=== PATIENT | female | born 1960 | race Caucasian/White ===

== ENCOUNTER 2019-05-12 06:56 | Emergency (ER) | payer OTHER ==
[~2019-05-12] VITALS: Ht 160 cm; Wt 56.7 kg
[2019-05-12 07:00] VITALS: BP_SYST 126
== END 2019-05-12 07:57 | disposition home or self-care (01) ==
LOC: SED 06:56
DX: J30.9 Allergic rhinitis, unspecified (principal)
CPT/HCPCS: 99282

== ENCOUNTER 2020-05-17 14:57 | Emergency (ER) | payer OTHER ==
[~2020-05-17] VITALS: Ht 160 cm; Wt 59.0 kg
--- NOTE | 2020-05-17 15:00 | NUR ---
PATIENT TO ER #[facility] 1
[2020-05-17 15:03] VITALS: BP_SYST 129
--- NOTE | 2020-05-17 15:03 | NUR ---
Pt came to ER for L leg sciatic pain pt states pain 9/10 in hip radiating down leg. Pt resting in gurney at this time VSS no distress noted.
--- NOTE | 2020-05-17 15:10 | NUR ---
ER at bedside examining patient.
[2020-05-17] MEDS ORDERED: KETOROLAC TROMETHAMINE 60 MG/2 ML VIAL IM ONE (15:15)
--- NOTE | 2020-05-17 15:30 | NUR ---
Pt tolerated medication, will continue to monitor
[2020-05-17] MEDS ORDERED: MORPHINE 4 MG/ML INJ. SYRINGE IM ONE (16:00)
--- NOTE | 2020-05-17 16:23 | NUR ---
Pt tolerated meds. Resting in [facility] at this time.
[2020-05-17 16:55] VITALS: BP_SYST 129
--- NOTE | 2020-05-17 16:56 | NUR ---
Patient given written and verbal discharge instructions and verbalizes understanding. ER MD discussed with patient the results and treatment provided. Patient in stable condition. ID arm band removed. Rx of Naprosyn given. Patient educated on pain management and to follow up with PMD. Pain Scale 3/10. Opportunity for questions provided and answered. Medication side effect fact sheet provided.
== END 2020-05-17 16:56 | disposition home or self-care (01) ==
LOC: SED 14:57
DX: M54.42 Lumbago with sciatica, left side (principal)
CPT/HCPCS: 96372; 99284; J1885; J2270

== ENCOUNTER 2020-08-18 13:57 | Outpatient (CLI) | payer OTHER | END 2020-08-18 20:05 | disposition home or self-care (01) | LOC: SMA 13:57 | DX: Z12.31 Encounter for screening mammogram for malignant neoplasm of breast (principal) | CPT/HCPCS: 77067 ==

== ENCOUNTER 2021-02-21 09:25 | Outpatient (CLI) | payer OTHER | END 2021-02-21 19:58 | disposition home or self-care (01) | LOC: SUS 09:25 | DX: N28.1 Cyst of kidney, acquired (principal); R93.89 Abnormal findings on diagnostic imaging of other specified body structures | CPT/HCPCS: 76700-TC; 76830-TC; 76857 ==

== ENCOUNTER 2021-03-15 14:59 | Emergency (ER) | payer OTHER ==
[~2021-03-15] VITALS: Ht 162.6 cm; Wt 59.0 kg
[2021-03-15 15:00] VITALS: BP_SYST 104
[2021-03-15] MEDS ORDERED: KETOROLAC TROMETHAMINE 60 MG/2 ML VIAL IM ONE (17:30)
[2021-03-15] MEDS ORDERED: IBUP-1969 PO (17:33)
[2021-03-15 17:47] VITALS: BP_SYST 112
== END 2021-03-15 17:47 | disposition home or self-care (01) ==
LOC: SED 14:59
DX: R07.89 Other chest pain (principal); W18.39XA Other fall on same level, initial encounter; Y93.89 Activity, other specified; Y92.098 Other place in other non-institutional residence as the place of occurrence of the external cause; Y99.8 Other external cause status
CPT/HCPCS: 71045; 71100; 93005; 96372; 99284; J1885

== ENCOUNTER 2021-07-04 08:28 | Emergency (ER) | payer OTHER ==
[~2021-07-04] VITALS: Ht 162.6 cm; Wt 57.2 kg
[~2021-07-04 08:28] MED LIST: IBUP-1969 PO
[2021-07-04 08:30] VITALS: BP_SYST 108
[2021-07-04] MEDS ORDERED: ONDANSETRON 4 MG ODT TAB PO ONE (08:45)
[2021-07-04 08:58] LABS: BASOPHILS % (AUTO) 0.6 % (0.0-2.0); EOSINOPHILS % (AUTO) 0.2 % (0.0-4.0); HEMATOCRIT 37.6 % (36-48); HEMOGLOBIN 12.7 g/dL (12.0-16.0); LYMPHOCYTES # (AUTO) 0.7 K/uL (1.0-5.5); LYMPHOCYTES % (AUTO) 8.8 % (20.5-51.5); MEAN CORPUSCULAR HEMOGLOBIN 32 pg (27-31); MEAN CORPUSCULAR HGB CONC 34 % (32-36); MEAN CORPUSCULAR VOLUME 95 fL (79.0-98.0); MONOCYTES # (AUTO) 0.3 K/uL (0.0-1.0); MONOCYTES % (AUTO) 3.5 % (1.7-9.3); NEUTROPHILS # (AUTO) 6.6 K/uL (1.8-7.7); NEUTROPHILS % (AUTO) 86.9 % (40.0-70.0); PLATELET COUNT (AUTO) 134 K/uL (130-430); RED BLOOD CELL COUNT(AUTO) 3.94 MIL/uL (4.2-6.2); RED CELL DISTRIBUTION WIDTH 14.8 % (9.0-15.0); WHITE BLOOD COUNT (AUTO) 7.6 K/uL (4.8-10.8)
[2021-07-04 09:12] LABS: CALCIUM 8.9 mg/dL (8.4-11.0); CHLORIDE 103 mmol/L (98-107); CREATININE 0.86 mg/dL (0.55-1.30); GLUCOSE 209 mg/dL (70-99); POTASSIUM 3.8 mmol/L (3.5-5.1); SODIUM SERUM 136 mmol/L (136-145); UREA NITROGEN, BLOOD 20 mg/dL (8-21)
[2021-07-04 09:16] LABS: PROTHROMBIN TIME 10.4 SECS (9.5-12.5)
[2021-07-04 09:18] LABS: ALANINE AMINOTRANSFERASE 35 U/L (12-78); ALBUMIN 3.4 g/dL (3.4-4.8); ASPARTATE AMINOTRANSFERASE 39 U/L (10-37); TOTAL BILIRUBIN 0.4 mg/dL (0.0-1.0)
[2021-07-04 09:23] LABS: ANION GAP < 3 (5-15); GFR AFRICAN AMERICAN 86 mL/min (>90)
[2021-07-04 10:18] VITALS: BP_SYST 108
== END 2021-07-04 10:20 | disposition home or self-care (01) ==
LOC: SED 08:28
DX: R42 Dizziness and giddiness (principal); R51.9 Headache, unspecified; Z79.899 Other long term (current) drug therapy
CPT/HCPCS: 36415; 70450; 71045; 76376; 80053; 84484; 85025; 85610; 85730; 93005; 99285; Q0162

== ENCOUNTER 2021-07-13 13:16 | Emergency (ER) | payer OTHER ==
[~2021-07-13] VITALS: Ht 160 cm; Wt 54.4 kg
[2021-07-13 13:29] VITALS: BP_SYST 118
[2021-07-13 14:47] VITALS: BP_SYST 118
[2021-07-14 11:06] LABS: HEPATITIS B CORE AB, TOTAL Negative (Negative); HEPATITIS B SURFACE AG Negative (Negative); HEPATITIS C VIRUS AB <0.1 s/co ratio (0.0-0.9)
== END 2021-07-13 14:49 | disposition home or self-care (01) ==
LOC: SED 13:16
DX: S61.432A Puncture wound without foreign body of left hand, initial encounter (principal); Z77.21 Contact with and (suspected) exposure to potentially hazardous body fluids; Z79.899 Other long term (current) drug therapy; W46.0XXA Contact with hypodermic needle, initial encounter; Y93.89 Activity, other specified; Y92.89 Other specified places as the place of occurrence of the external cause; Y99.8 Other external cause status
CPT/HCPCS: 36415; 86704; 86706; 86803; 87340; 99283

== ENCOUNTER 2021-08-15 13:14 | Outpatient (CLI) | payer OTHER ==
[2021-08-16 05:08] LABS: HEPATITIS B CORE AB, TOTAL Negative (Negative); HEPATITIS B SURFACE AG Negative (Negative); HEPATITIS C VIRUS AB <0.1 s/co ratio (0.0-0.9)
== END 2021-08-15 20:13 | disposition home or self-care (01) ==
LOC: SLB 13:14
PROVIDERS: ATTEND Internal Medicine Hospice and Palliative Medicine
DX: T14.90XA Injury, unspecified, initial encounter (principal); W46.0XXA Contact with hypodermic needle, initial encounter; Y93.89 Activity, other specified; Y92.89 Other specified places as the place of occurrence of the external cause; Y99.8 Other external cause status
CPT/HCPCS: 36415; 86704; 86706; 86803; 87340

== ENCOUNTER 2022-02-07 09:33 | Outpatient (CLI) | payer OTHER | END 2022-02-07 14:00 | disposition home or self-care (01) | LOC: SUS 09:33 | PROVIDERS: ATTEND Family Medicine | DX: R10.9 Unspecified abdominal pain (principal) | CPT/HCPCS: 76700-TC ==

== ENCOUNTER 2022-03-06 06:33 | Outpatient (CLI) | payer OTHER ==
[2022-03-06 08:23] LABS: BASOPHILS % (AUTO) 0.8 % (0.0-2.0); EOSINOPHILS # (AUTO) 0.1 K/uL (0.0-0.4); EOSINOPHILS % (AUTO) 1.8 % (0.0-4.0); HEMATOCRIT 40.1 % (36-48); HEMOGLOBIN 13.3 g/dL (12.0-16.0); LYMPHOCYTES # (AUTO) 1.2 K/uL (1.0-5.5); LYMPHOCYTES % (AUTO) 26.9 % (20.5-51.5); MEAN CORPUSCULAR HEMOGLOBIN 31 pg (27-31); MEAN CORPUSCULAR HGB CONC 33 % (32-36); MEAN CORPUSCULAR VOLUME 93 fL (79.0-98.0); MONOCYTES # (AUTO) 0.3 K/uL (0.0-1.0); NEUTROPHILS # (AUTO) 2.8 K/uL (1.8-7.7); NEUTROPHILS % (AUTO) 63.5 % (40.0-70.0); PLATELET COUNT (AUTO) 144 K/uL (130-430); RED BLOOD CELL COUNT(AUTO) 4.31 MIL/uL (4.2-6.2); RED CELL DISTRIBUTION WIDTH 14.4 % (9.0-15.0); WHITE BLOOD COUNT (AUTO) 4.5 K/uL (4.8-10.8)
[2022-03-06 09:20] LABS: ALBUMIN 3.8 g/dL (3.4-4.8); CALCIUM 10.4 mg/dL (8.4-11.0); CREATININE 0.53 mg/dL (0.55-1.30); TOTAL BILIRUBIN 0.7 mg/dL (0.0-1.0)
[2022-03-06 09:24] LABS: BILIRUBIN,URINE NEGATIVE (NEGATIVE); BLOOD, URINE NEGATIVE (NEGATIVE); CLARITY/URINE CLEAR (CLEAR); COLOR,URINE YELLOW (YELLOW); GLUCOSE,URINE NEGATIVE (NEGATIVE); KETONES,URINE NEGATIVE (NEGATIVE); LEUKOCYTE ESTERASE ,URINE TRACE (NEGATIVE); NITRITE, URINE NEGATIVE (NEGATIVE); PROTEIN URINE NEGATIVE (NEGATIVE); UROBILINOGEN,URINE 0.2 (0.2-1.0)
[2022-03-06 09:34] LABS: BACTERIA,URINE FEW /HPF (None Seen); MUCUS,URINE 1+ /LPF (None Seen); RBC,URINE 0-3 /HPF (0-3)
[2022-03-06 12:15] LABS: THYROID STIMULATING HORMONE 2.12 uIu/mL (0.34-4.82)
== END 2022-03-06 18:41 | disposition home or self-care (01) ==
LOC: SLB 06:33
DX: Z00.00 Encounter for general adult medical examination without abnormal findings (principal); Z13.9 Encounter for screening, unspecified; Z13.1 Encounter for screening for diabetes mellitus; Z79.899 Other long term (current) drug therapy
CPT/HCPCS: 36415; 80053; 80061; 81000; 83036; 84443; 85025

== ENCOUNTER 2022-03-26 14:38 | Emergency (ER) | payer OTHER ==
[~2022-03-26] VITALS: Ht 160 cm; Wt 54.4 kg
[2022-03-26 15:41] VITALS: BP_SYST 112
[2022-03-26] MEDS ORDERED: MECLIZINE HCL 25 MG TABLET (ANITVERT) PO ONE (20:00)
[2022-03-26] MEDS ORDERED: NACL 0.9% 1,000 ML IV ONE (20:00)
[2022-03-26 20:24] LABS: BILIRUBIN,URINE NEGATIVE (NEGATIVE); CLARITY/URINE CLEAR (CLEAR); COLOR,URINE YELLOW (YELLOW); GLUCOSE,URINE NEGATIVE (NEGATIVE); KETONES,URINE NEGATIVE (NEGATIVE); LEUKOCYTE ESTERASE ,URINE 1+ (NEGATIVE); NITRITE, URINE NEGATIVE (NEGATIVE); PROTEIN URINE NEGATIVE (NEGATIVE); UROBILINOGEN,URINE 0.2 (0.2-1.0)
[2022-03-26 20:32] LABS: BLOOD, URINE TRACE (NEGATIVE)
[2022-03-26 20:34] LABS: BASOPHILS % (AUTO) 0.8 % (0.0-2.0); EOSINOPHILS # (AUTO) 0.1 K/uL (0.0-0.4); EOSINOPHILS % (AUTO) 2.6 % (0.0-4.0); HEMATOCRIT 35.3 % (36-48); HEMOGLOBIN 12.1 g/dL (12.0-16.0); LYMPHOCYTES # (AUTO) 1.8 K/uL (1.0-5.5); LYMPHOCYTES % (AUTO) 37.8 % (20.5-51.5); MEAN CORPUSCULAR HEMOGLOBIN 32 pg (27-31); MEAN CORPUSCULAR HGB CONC 34 % (32-36); MEAN CORPUSCULAR VOLUME 93 fL (79.0-98.0); MONOCYTES # (AUTO) 0.4 K/uL (0.0-1.0); MONOCYTES % (AUTO) 8.1 % (1.7-9.3); NEUTROPHILS # (AUTO) 2.4 K/uL (1.8-7.7); NEUTROPHILS % (AUTO) 50.7 % (40.0-70.0); PLATELET COUNT (AUTO) 134 K/uL (130-430); RED BLOOD CELL COUNT(AUTO) 3.81 MIL/uL (4.2-6.2); RED CELL DISTRIBUTION WIDTH 14.3 % (9.0-15.0); WHITE BLOOD COUNT (AUTO) 4.8 K/uL (4.8-10.8)
[2022-03-26 20:37] LABS: PROTHROMBIN TIME 10.5 SECS (9.5-12.5)
[2022-03-26 20:43] LABS: ANION GAP 4 (5-15); CALCIUM 10.4 mg/dL (8.4-11.0); CHLORIDE 108 mmol/L (98-107); CREATININE 0.66 mg/dL (0.55-1.30); GLUCOSE 91 mg/dL (70-99); SODIUM SERUM 139 mmol/L (136-145); UREA NITROGEN, BLOOD 27 mg/dL (8-21)
[2022-03-26 20:48] LABS: GFR AFRICAN AMERICAN 116 mL/min (>90)
[2022-03-26 20:52] LABS: ALANINE AMINOTRANSFERASE 30 U/L (12-78); ALBUMIN 3.5 g/dL (3.4-4.8); ASPARTATE AMINOTRANSFERASE 33 U/L (10-37); TOTAL BILIRUBIN 0.2 mg/dL (0.0-1.0)
[2022-03-26 21:01] LABS: BACTERIA,URINE FEW /HPF (None Seen); RBC,URINE 0-3 /HPF (0-3)
[2022-03-26] MEDS ORDERED: cefTRIAXone 1 GM IVPB PREMIX 50 ML IV ONE (21:45)
[2022-03-26] MEDS ORDERED: METOCLOPRAMIDE HCL 10 MG/2 ML VIAL IVP ONE (22:00)
[2022-03-26] MEDS ORDERED: DIPHENHYDRAMINE INJ 50 MG/ML VIAL IVP ONE (22:00)
[2022-03-26] MEDS ORDERED: KETOROLAC TROMETHAMINE 30 MG VIAL IVP ONE (22:30)
[2022-03-26] MEDS ORDERED: MECL-108 PO (23:14)
[2022-03-26] MEDS ORDERED: NAPR-690 PO (23:16)
[2022-03-26 23:33] VITALS: BP_SYST 116
== END 2022-03-26 23:33 | disposition home or self-care (01) ==
LOC: SED 14:38
DX: R42 Dizziness and giddiness (principal); R51.9 Headache, unspecified; N39.0 Urinary tract infection, site not specified; K21.9 Gastro-esophageal reflux disease without esophagitis
CPT/HCPCS: 36415; 71045; 80053; 81000; 84484; 85025; 85610; 85730; 87086; 93005; 96365; 96366; 96375; 99285; J0696; J1200; J1885; J2765; J8597

== ENCOUNTER 2022-07-01 06:44 | Outpatient (CLI) | payer OTHER ==
[~2022-07-01 06:44] MED LIST changes: +MECL-108 PO; +NAPR-690 PO
[2022-07-02] MEDS ORDERED: TRAM50TA PO (12:53)
== END 2022-07-01 20:42 | disposition home or self-care (01) ==
LOC: SLB 06:44
DX: G44.52 New daily persistent headache (NDPH) (principal)
CPT/HCPCS: 70450-TC; 76376

== ENCOUNTER 2022-07-02 11:57 | Emergency (ER) | payer OTHER ==
[~2022-07-02] VITALS: Ht 160 cm; Wt 53.5 kg
[2022-07-02 12:07] VITALS: BP_SYST 133
[2022-07-02] MEDS ORDERED: ASPIRIN 81 MG TAB.CHEW PO ONE (12:30)
--- NOTE | 2022-07-02 12:41 | NUR ---
EKG DONE BEDSIDE. ASA GIVEN PO.
[2022-07-02 12:53] LABS: BASOPHILS # (AUTO) 0.1 K/uL (0.0-0.2); BASOPHILS % (AUTO) 2.8 % (0.0-2.0); EOSINOPHILS # (AUTO) 0.1 K/uL (0.0-0.4); EOSINOPHILS % (AUTO) 1.8 % (0.0-4.0); HEMATOCRIT 35.6 % (36-48); HEMOGLOBIN 12.1 g/dL (12.0-16.0); LYMPHOCYTES # (AUTO) 1.1 K/uL (1.0-5.5); LYMPHOCYTES % (AUTO) 20.7 % (20.5-51.5); MEAN CORPUSCULAR HEMOGLOBIN 32 pg (27-31); MEAN CORPUSCULAR HGB CONC 34 % (32-36); MEAN CORPUSCULAR VOLUME 93 fL (79.0-98.0); MONOCYTES # (AUTO) 0.2 K/uL (0.0-1.0); MONOCYTES % (AUTO) 4.7 % (1.7-9.3); NEUTROPHILS # (AUTO) 3.6 K/uL (1.8-7.7); PLATELET COUNT (AUTO) 146 K/uL (130-430); RED BLOOD CELL COUNT(AUTO) 3.83 MIL/uL (4.2-6.2); RED CELL DISTRIBUTION WIDTH 14.3 % (9.0-15.0); WHITE BLOOD COUNT (AUTO) 5.2 K/uL (4.8-10.8)
[2022-07-02] MEDS ORDERED: TRAM50TA PO (12:53)
[2022-07-02 13:01] LABS: ANION GAP 6 (5-15); CHLORIDE 108 mmol/L (98-107); CREATININE 0.56 mg/dL (0.55-1.30); GLUCOSE 95 mg/dL (70-99); POTASSIUM 3.8 mmol/L (3.5-5.1); SODIUM SERUM 141 mmol/L (136-145); UREA NITROGEN, BLOOD 17 mg/dL (8-21)
[2022-07-02 13:11] LABS: GFR AFRICAN AMERICAN 141 mL/min (>90)
[2022-07-02 13:16] LABS: ALANINE AMINOTRANSFERASE 25 U/L (12-78); ALBUMIN 3.2 g/dL (3.4-4.8); ASPARTATE AMINOTRANSFERASE 28 U/L (10-37); TOTAL BILIRUBIN 0.2 mg/dL (0.0-1.0)
--- NOTE | 2022-07-02 14:11 | NUR ---
REASSESSED BY ED MD THEN D/C'D HOME. Patient given written and verbal discharge instructions and verbalizes understanding. ER MD discussed with patient the results and treatment provided. Patient in stable condition. ID arm band removed. IV catheter removed intact and dressing applied, no active bleeding. Patient educated on pain management and to follow up with PMD. Pain Scale0. Opportunity for questions provided and answered. Medication side effect fact sheet provided.
[2022-07-02 14:13] VITALS: BP_SYST 136
== END 2022-07-02 14:11 | disposition home or self-care (01) ==
LOC: SED 11:57
DX: S20.212A Contusion of left front wall of thorax, initial encounter (principal); M79.602 Pain in left arm; K21.9 Gastro-esophageal reflux disease without esophagitis; Z79.899 Other long term (current) drug therapy; W21.89XA Striking against or struck by other sports equipment, initial encounter; Y93.89 Activity, other specified; Y92.89 Other specified places as the place of occurrence of the external cause; Y99.8 Other external cause status
CPT/HCPCS: 36415; 71045; 80053; 83880; 84484; 85025; 93005; 99285

== ENCOUNTER 2022-09-23 15:22 | Outpatient (CLI) | payer OTHER ==
[~2022-09-23 15:22] MED LIST changes: +TRAM50TA PO
== END 2022-09-23 20:46 | disposition home or self-care (01) ==
LOC: SRD 15:22
DX: M47.812 Spondylosis without myelopathy or radiculopathy, cervical region (principal); M43.12 Spondylolisthesis, cervical region; M54.2 Cervicalgia
CPT/HCPCS: 72040-TC

== ENCOUNTER 2022-11-11 10:16 | Outpatient (CLI) | payer OTHER | END 2022-11-11 19:03 | disposition home or self-care (01) | LOC: SRD 10:16 | DX: D25.9 Leiomyoma of uterus, unspecified (principal); D22.30 Melanocytic nevi of unspecified part of face | CPT/HCPCS: 76856-TC ==

== ENCOUNTER 2023-05-19 06:47 | Outpatient (CLI) | payer OTHER ==
[2023-05-20 11:06] LABS: HEPATITIS A AB, IgM Negative (Negative); HEPATITIS B CORE AB, IgM Negative (Negative); HEPATITIS B SURFACE AG Negative (Negative)
== END 2023-05-19 18:55 | disposition home or self-care (01) ==
LOC: SLB 06:47
DX: Z20.5 Contact with and (suspected) exposure to viral hepatitis (principal)
CPT/HCPCS: 36415; 80074

== ENCOUNTER 2023-06-30 08:05 | Outpatient (CLI) | payer OTHER | END 2023-06-30 20:51 | disposition home or self-care (01) | LOC: SUS 08:05 | DX: N83.201 Unspecified ovarian cyst, right side (principal) | CPT/HCPCS: 76856-TC ==

== ENCOUNTER 2023-07-09 08:48 | Outpatient (CLI) | payer OTHER ==
[2023-07-09] MEDS ORDERED: DIATR MEGLU/DIATRIZ SOD 30 ML SOLUTION PO ONE (09:01)
== END 2023-07-09 17:53 | disposition home or self-care (01) ==
LOC: SCT 08:48
PROVIDERS: ATTEND Obstetrics & Gynecology
DX: K57.10 Diverticulosis of small intestine without perforation or abscess without bleeding (principal); R91.1 Solitary pulmonary nodule; J98.11 Atelectasis; M47.816 Spondylosis without myelopathy or radiculopathy, lumbar region; R10.2 Pelvic and perineal pain; N85.8 Other specified noninflammatory disorders of uterus; Z90.49 Acquired absence of other specified parts of digestive tract
CPT/HCPCS: 74176; 76376; Q9964

== ENCOUNTER 2023-07-24 08:12 | Emergency (ER) | payer OTHER ==
[~2023-07-24] VITALS: Ht 152.4 cm; Wt 58.5 kg
[2023-07-24 08:14] VITALS: BP_SYST 123; PULSE 69; RESP 18; TEMP 98; O2SAT 97
[2023-07-24] MEDS ORDERED: NACL 0.9% 1,000 ML IV ONE (08:45)
[2023-07-24 09:04] LABS: BASOPHILS % (AUTO) 0.7 % (0.0-2.0); EOSINOPHILS # (AUTO) 0.1 K/uL (0.0-0.4); EOSINOPHILS % (AUTO) 1.7 % (0.0-4.0); LYMPHOCYTES # (AUTO) 1.2 K/uL (1.0-5.5); LYMPHOCYTES % (AUTO) 21.2 % (20.5-51.5); MEAN CORPUSCULAR HEMOGLOBIN 31 pg (27-31); MEAN CORPUSCULAR HGB CONC 33 % (32-36); MEAN CORPUSCULAR VOLUME 95 fL (79.0-98.0); MONOCYTES # (AUTO) 0.4 K/uL (0.0-1.0); MONOCYTES % (AUTO) 7.4 % (1.7-9.3); NEUTROPHILS # (AUTO) 3.9 K/uL (1.8-7.7); PLATELET COUNT (AUTO) 143 K/uL (130-430); RED BLOOD CELL COUNT(AUTO) 3.89 MIL/uL (4.2-6.2); RED CELL DISTRIBUTION WIDTH 14.9 % (9.0-15.0); WHITE BLOOD COUNT (AUTO) 5.6 K/uL (4.8-10.8)
[2023-07-24 09:20] LABS: ANION GAP 8 (5-15); CALCIUM 9.3 mg/dL (8.4-11.0); CARBON DIOXIDE 28 mmol/L (23-29); CHLORIDE 101 mmol/L (98-107); CREATININE 0.55 mg/dL (0.55-1.30); GFR AFRICAN AMERICAN 143 mL/min (>90); GLUCOSE 137 mg/dL (74-106); POTASSIUM 3.6 mmol/L (3.5-5.1); SODIUM SERUM 137 mmol/L (136-145); UREA NITROGEN, BLOOD 17 mg/dL (8-21)
[2023-07-24 09:21] LABS: GFR NON AFRICAN-AMERICAN 118 mL/min (>90)
[2023-07-24 09:27] LABS: ALANINE AMINOTRANSFERASE 26 U/L (12-78); ALBUMIN 3.4 g/dL (3.4-4.8); ASPARTATE AMINOTRANSFERASE 31 U/L (10-37); TOTAL BILIRUBIN 0.5 mg/dL (0.0-1.0); TOTAL PROTEIN, SERUM 6.6 g/dL (6.4-8.3)
[2023-07-24] MEDS ORDERED: iohexoL 350 mgI/mL, 100 ML INFUS..BTL IV ONE (09:38)
[2023-07-24 09:48] LABS: BILIRUBIN,URINE NEGATIVE (NEGATIVE); BLOOD, URINE TRACE (NEGATIVE); CLARITY/URINE HAZY (CLEAR); COLOR,URINE YELLOW (YELLOW); GLUCOSE,URINE NEGATIVE (NEGATIVE); KETONES,URINE NEGATIVE (NEGATIVE); LEUKOCYTE ESTERASE ,URINE NEGATIVE (NEGATIVE); PROTEIN URINE NEGATIVE (NEGATIVE)
[2023-07-24 09:49] LABS: NITRITE, URINE POSITIVE (NEGATIVE); UROBILINOGEN,URINE 0.2 (0.2-1.0)
[2023-07-24 09:56] LABS: BACTERIA,URINE MANY /HPF (None Seen); RBC,URINE 0-3 /HPF (0-3); WBC,URINE 0-3 /HPF (0-3)
[2023-07-24] MEDS ORDERED: MECLIZINE HCL 25 MG TABLET (ANITVERT) PO ONE (10:45)
[2023-07-24] MEDS ORDERED: MECL-225 PO ×2 (11:50→14:22)
[2023-07-24] MEDS ORDERED: CEPH-548 PO ×2 (11:50→14:22)
[2023-07-24] MEDS ORDERED: CARB15DR93 EACH EAR ×2 (11:50→14:22)
[2023-07-24 12:19] VITALS: BP_SYST 133; PULSE 76; RESP 18; TEMP 98; O2SAT 97
== END 2023-07-24 12:18 | disposition home or self-care (01) ==
LOC: SED 08:12
DX: N39.0 Urinary tract infection, site not specified (principal); I44.7 Left bundle-branch block, unspecified; H61.22 Impacted cerumen, left ear; R42 Dizziness and giddiness; K21.9 Gastro-esophageal reflux disease without esophagitis; Z79.899 Other long term (current) drug therapy
CPT/HCPCS: 99285; 70496; 96360; 71045; 80053; 81000; 85025; 84484; 36415; 93005; 70498; 70450; 76376; J8597; Q9967; J7030

== ENCOUNTER 2023-09-22 10:25 | Outpatient (CLI) | payer OTHER ==
[~2023-09-22 10:25] MED LIST changes: +CARB15DR93 EACH EAR; +CEPH-548 PO; +MECL-225 PO
[2023-09-22 11:22] LABS: PROTHROMBIN TIME 10.4 SECS (9.5-12.5)
== END 2023-09-22 20:37 | disposition home or self-care (01) ==
LOC: SLB 10:25
DX: D69.1 Qualitative platelet defects (principal); R79.1 Abnormal coagulation profile
CPT/HCPCS: 36415; 85049-TC; 85610-TC; 85730-TC

== ENCOUNTER 2023-09-24 10:12 | Outpatient (CLI) | payer OTHER | END 2023-09-24 17:15 | disposition home or self-care (01) | LOC: SUS 10:12 | DX: E04.2 Nontoxic multinodular goiter (principal) | CPT/HCPCS: 88172; 88173; 88305 ==

== ENCOUNTER 2023-10-16 07:12 | Outpatient (CLI) | payer OTHER | END 2023-10-16 18:24 | disposition home or self-care (01) | LOC: SRD 07:12 | DX: M17.12 Unilateral primary osteoarthritis, left knee (principal); M25.562 Pain in left knee; M25.462 Effusion, left knee | CPT/HCPCS: 73564 ==

== ENCOUNTER 2024-02-13 06:39 | Outpatient (CLI) | payer OTHER ==
[2024-02-13 07:17] LABS: CALCIUM 10.3 mg/dL (8.4-11.0); CREATININE 0.65 mg/dL (0.55-1.30); POTASSIUM 4.3 mmol/L (3.5-5.1)
[2024-02-13 07:23] LABS: BASOPHILS % (AUTO) 0.8 % (0.0-2.0); EOSINOPHILS # (AUTO) 0.1 K/uL (0.0-0.4); EOSINOPHILS % (AUTO) 2.3 % (0.0-4.0); HEMATOCRIT 39.3 % (36-48); HEMOGLOBIN 13.2 g/dL (12.0-16.0); LYMPHOCYTES # (AUTO) 1.9 K/uL (1.0-5.5); LYMPHOCYTES % (AUTO) 33.3 % (20.5-51.5); MEAN CORPUSCULAR HEMOGLOBIN 32 pg (27-31); MEAN CORPUSCULAR HGB CONC 34 % (32-36); MEAN CORPUSCULAR VOLUME 94 fL (79.0-98.0); MONOCYTES # (AUTO) 0.5 K/uL (0.0-1.0); NEUTROPHILS # (AUTO) 3.2 K/uL (1.8-7.7); NEUTROPHILS % (AUTO) 54.6 % (40.0-70.0); PLATELET COUNT (AUTO) 197 K/uL (130-430); RED BLOOD CELL COUNT(AUTO) 4.17 MIL/uL (4.2-6.2); RED CELL DISTRIBUTION WIDTH 14.9 % (9.0-15.0); WHITE BLOOD COUNT (AUTO) 5.8 K/uL (4.8-10.8)
[2024-02-14 08:06] LABS: CANCER AG, 125 11.1 U/mL (0.0-38.1); CEA 1.6 ng/mL (0.0-4.7)
== END 2024-02-13 20:08 | disposition home or self-care (01) ==
LOC: SLB 06:39
DX: D25.1 Intramural leiomyoma of uterus (principal); M43.16 Spondylolisthesis, lumbar region; M54.50 Low back pain, unspecified; Z13.220 Encounter for screening for lipoid disorders; Z13.1 Encounter for screening for diabetes mellitus; Z13.9 Encounter for screening, unspecified; R97.0 Elevated carcinoembryonic antigen [CEA]; R97.1 Elevated cancer antigen 125 [CA 125]; K59.00 Constipation, unspecified
CPT/HCPCS: 36415; 72110; 76857; 80048; 82378; 83037; 85025; 86304

== ENCOUNTER 2024-03-03 08:34 | Outpatient (CLI) | payer OTHER | END 2024-03-03 18:27 | disposition home or self-care (01) | LOC: SMI 08:34 | DX: S83.242A Other tear of medial meniscus, current injury, left knee, initial encounter (principal); I83.92 Asymptomatic varicose veins of left lower extremity; M17.12 Unilateral primary osteoarthritis, left knee; X58.XXXA Exposure to other specified factors, initial encounter; Y92.89 Other specified places as the place of occurrence of the external cause; Y99.8 Other external cause status; Y93.89 Activity, other specified | CPT/HCPCS: 73721 ==

== ENCOUNTER 2024-05-12 08:58 | Outpatient (CLI) | payer OTHER | END 2024-05-12 19:13 | disposition home or self-care (01) | LOC: SUS 08:58 | DX: M79.605 Pain in left leg (principal); G47.62 Sleep related leg cramps | CPT/HCPCS: 93923; 93970 ==

== ENCOUNTER 2024-05-14 13:28 | Emergency (ER) | payer OTHER ==
[~2024-05-14] VITALS: Ht 160 cm; Wt 54.0 kg
[2024-05-14 13:33] VITALS: BP_SYST 124; PULSE 75; RESP 22; TEMP 98.3; O2SAT 98
[2024-05-14 15:05] LABS: BASOPHILS % (AUTO) 0.4 % (0.0-2.0); EOSINOPHILS % (AUTO) 0.4 % (0.0-4.0); HEMATOCRIT 37.4 % (36-48); HEMOGLOBIN 12.9 g/dL (12.0-16.0); LYMPHOCYTES # (AUTO) 1.4 K/uL (1.0-5.5); LYMPHOCYTES % (AUTO) 26.5 % (20.5-51.5); MEAN CORPUSCULAR HEMOGLOBIN 32 pg (27-31); MEAN CORPUSCULAR HGB CONC 35 % (32-36); MEAN CORPUSCULAR VOLUME 93 fL (79.0-98.0); MONOCYTES # (AUTO) 0.2 K/uL (0.0-1.0); MONOCYTES % (AUTO) 4.5 % (1.7-9.3); NEUTROPHILS # (AUTO) 3.6 K/uL (1.8-7.7); NEUTROPHILS % (AUTO) 68.2 % (40.0-70.0); PLATELET COUNT (AUTO) 160 K/uL (130-430); RED BLOOD CELL COUNT(AUTO) 4.02 MIL/uL (4.2-6.2); WHITE BLOOD COUNT (AUTO) 5.3 K/uL (4.8-10.8)
[2024-05-14 15:24] LABS: CALCIUM 10.5 mg/dL (8.4-11.0); CREATININE 0.56 mg/dL (0.55-1.30); POTASSIUM 4.3 mmol/L (3.5-5.1)
[2024-05-14 16:34] VITALS: BP_SYST 124; PULSE 75; RESP 22; TEMP 98.3; O2SAT 98
== END 2024-05-14 16:33 | disposition home or self-care (01) ==
LOC: SED 13:28
DX: R20.2 Paresthesia of skin (principal); K21.9 Gastro-esophageal reflux disease without esophagitis; Z79.899 Other long term (current) drug therapy; Z79.2 Long term (current) use of antibiotics
CPT/HCPCS: 36415; 70450-TC; 80048; 85025; 99284